=== PATIENT | female | born 1960 | race Caucasian/White ===

== ENCOUNTER → 2017-07-20 | Outpatient (CLI) | payer OTHER ==
--- NOTE | 2017-07-20 15:57 | XR ---
EXAMINATION TYPE: XR wrist complete RT, XR hand complete RT DATE OF EXAM: 07/20/2017 CLINICAL HISTORY: Pain after lifting injury. TECHNIQUE: Frontal, lateral and oblique images of the right hand and wrist are obtained. Fourth scap hoid view right wrist is acquired. COMPARISON: None FINDINGS: There is no acute fracture/dislocation evident in the right wrist. There is old ulnar styl oid avulsion fracture fracture redemonstrated. The joint spaces in the right wrist appear within norm al limits. The overlying soft tissue appears unremarkable. Images of right hand show no acute fracture or dislocation. There is mild degenerative change through out the phalanges most prominent in the DIP joints with some involvement fifth PIP joint. Overlying s oft tissue is unremarkable. IMPRESSION: There is no acute fracture or dislocation in the right hand or wrist.
== END | disposition home or self-care (01) ==
LOC: RADXRMAIN 14:59
PROVIDERS: ATTEND Emergency Medicine
DX: S63.501A Unspecified sprain of right wrist, initial encounter (principal)

== ENCOUNTER → 2017-07-30 | Outpatient (CLI) | payer OTHER ==
--- NOTE | 2017-07-30 14:39 | XR ---
EXAMINATION TYPE: XR wrist complete RT DATE OF EXAM: 07/30/2017 COMPARISON: 07/20/2017 HISTORY: Pain TECHNIQUE: Four views submitted. FINDINGS: The osseous structures are intact. The joint spaces are preserved and there is no acute fracture or dislocation. There is old ulnar styloid avulsion fracture fracture redemonstrated. IMPRESSION: 1. No definite acute fracture or dislocation if symptoms persist, follow-up study in 7 to 10 days wo uld be suggested
== END ==
LOC: RADXRMAIN 14:17
PROVIDERS: ATTEND Emergency Medicine
DX: S63.501D Unspecified sprain of right wrist, subsequent encounter (principal)

== ENCOUNTER → 2020-05-24 | Outpatient (CLI) | payer BC ==
--- NOTE | 2020-05-24 14:42 | XR ---
EXAMINATION TYPE: XR hand limited LT DATE OF EXAM: 05/24/2020 COMPARISON: NONE HISTORY: Pain TECHNIQUE: Two views are submitted. FINDINGS: There is a displaced fracture through the distal phalanx first digit. No definite articular extension identified. Soft tissue edema noted. Arthropathy of the first MCP joint. Remaining osseous structure s intact. IMPRESSION: 1. Mildly displaced fracture base distal phalanx first digit with adjacent soft tissue edema.
== END | disposition home or self-care (01) ==
LOC: RADXRMAIN 14:03
PROVIDERS: ATTEND Internal Medicine
DX: S62.522A Displaced fracture of distal phalanx of left thumb, initial encounter for closed fracture (principal)

== ENCOUNTER → 2021-06-28 | Outpatient (CLI) | payer BC ==
--- NOTE | 2021-06-29 09:58 | MM ---
Reason for exam: additional evaluation requested from abnormal screening. Last mammogram was performed less than 1 month ago. History: Patient is postmenopausal and is nulliparous. Family history of breast cancer in maternal grandmother. Took hormonal contraceptives for 2 years beginning at age 18. Physical Findings: A clinical breast exam by your physician is recommended on an annual basis and results should be correlated with mammographic findings. MG 3D Work Up W/Cad LT CC with magnification, LM with magnification, and LM view(s) were taken of the left breast. Prior study comparison: June 23, 2021, bilateral MG screening mammo w CAD. There are scattered fibroglandular densities. 6mm spiculated focal asymmetry upper outer quadrant with some associated punctate calcifications. Results were given to the patient verbally at the time of the exam. ASSESSMENT: Incomplete: need additional imaging evaluation, BI-RAD 0 RECOMMENDATION: Ultrasound of the left breast.
--- NOTE | 2021-06-29 10:01 | USB ---
Reason for exam: additional evaluation requested from abnormal screening. History: Patient is postmenopausal and is nulliparous. Family history of breast cancer in maternal grandmother. Took hormonal contraceptives for 2 years beginning at age 18. Physical Findings: A clinical breast exam by your physician is recommended on an annual basis and results should be correlated with mammographic findings. US Breast Workup Limited LT Left limited breast ultrasound including focal area of concern, retroareolar and axilla demonstrates a 0.5 x 0.5 x 0.7cm oval, echogenic lesion at 1 o'clock suggests a lipoma. Scanned 12-3 o'clock. Stereotactic biopsy of the upper outer quadrant density can be performed. Probably from a CC approach. Results were given to the patient verbally at the time of the exam. ASSESSMENT: Suspicious, BI-RAD 4 RECOMMENDATION: Stereotactic core biopsy of the left breast. Called Dr. Peterson's office with mammographic findings and has scheduled an appointment for the patient for 07/25/21 at 9:[address] Aceves. Biopsy scheduled for 07/18/21 at 7:00. PRELIMINARY REPORT CALLED AND FAXED TO DR. ACEVES ON 06/29/21.
== END | disposition home or self-care (01) ==
LOC: RADMAMWWP 13:29
PROVIDERS: ATTEND Internal Medicine
DX: R92.8 Other abnormal and inconclusive findings on diagnostic imaging of breast (principal)
CPT/HCPCS: 77061; 77065

== ENCOUNTER → 2021-07-18 | Day surgery (SDC) | payer BC ==
[2021-07-18 07:28] VITALS: RESP 16
[2021-07-18 08:40] VITALS: BP 155/89; PULSE 70; TEMP 98.1
--- NOTE | 2021-07-18 14:06 | MM ---
Stereotactic Mammotome core biopsy left breast. HISTORY: Left breast spiculation The lesion in question within the left breast were targeted by the undersigned. Procedure was performed by the undersigned. Informed consent was obtained and all of the patients questions were answered. The standard sterile technique was utilized and appropriate local anesthesia was obtained with 1% lidocaine. Mammotome probe was advanced and multiple core samples were obtained and sent to pathology for interpretation. Microclip marker was deployed at the site of biopsy. Post procedural mammogram demonstrates appropriate deployment of radiopaque clip marker. The patient tolerated the procedure well and left the department in stable condition. Pathology results are pending. IMPRESSION: Successful stereotactic core biopsy left breast with pathology results pending. 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 Recommendation Surgical consult of the left breast. PAYTON
== END ==
LOC: RADMAMWWP 06:53
PROVIDERS: ATTEND Student in an Organized Health Care Education/Training Program
DX: D05.12 Intraductal carcinoma in situ of left breast (principal)
CPT/HCPCS: 19081; 88305; 88342; 88341; A4648; J2001

== ENCOUNTER → 2021-08-01 | Outpatient (CLI) | payer BC ==
--- NOTE | 2021-08-01 09:12 | XR ---
EXAMINATION TYPE: XR chest 2V DATE OF EXAM: 08/01/2021 COMPARISON: NONE TECHNIQUE: PA and lateral views submitted. HISTORY: Breast cancer FINDINGS: The lungs are clear and there is no pneumothorax, pleural effusion, or focal pneumonia. IMPRESSION: 1. No acute process.
[2021-08-01 09:14] LABS: HCT 39.2 % (34.0-46.0); HGB 12.7 gm/dL (11.4-16.0); MCH 32.2 pg (25.0-35.0); MCHC 32.4 g/dL (31.0-37.0); MCV 99.3 fL (80.0-100.0); Mean Platelet Volume 8.1; Platelet Count 216 k/uL (150-450); RBC 3.95 m/uL (3.80-5.40); RDW 12.6 % (11.5-15.5); WBC 5.7 k/uL (3.8-10.6)
[2021-08-01 09:32] LABS: ALT 22 U/L (4-34); AST 26 U/L (14-36); African American GFR (CKD) >90 (>60 ml/min/1.73 sqM); Albumin 3.4 g/dL (3.5-5.0); Albumin/Globulin Ratio 1.4; Alkaline Phosphatase 53 U/L (38-126); Anion Gap 4 mmol/L; Blood Urea Nitrogen 10 mg/dL (7-17); Calcium 8.3 mg/dL (8.4-10.2); Carbon Dioxide 27 mmol/L (22-30); Chloride 105 mmol/L (98-107); Globulin 2.4 g/dL; Glucose 101 mg/dL (74-99); LDH 397 U/L (313-618); Non-African American GFR(CKD) 84 (>60 ml/min/1.73 sqM); Potassium 4.7 mmol/L (3.5-5.1); Sodium 136 mmol/L (137-145); Total Bilirubin 0.5 mg/dL (0.2-1.3); Total Protein 5.8 g/dL (6.3-8.2)
--- NOTE | 2021-08-01 11:34 | CT ---
EXAMINATION TYPE: CT abdomen pelvis w con DATE OF EXAM: 08/01/2021 COMPARISON: NONE HISTORY: 61-year-old female C50.912, Invasive Ductal Carcinoma of Left Breast. Sx tomorrow. TECHNIQUE: Contiguous axial scanning of the abdomen and pelvis following administration of 100 ml Iso prasanth 300 IV contrast. Delayed images through the kidneys and coronal/sagittal reconstructions perform ed. CT DLP: 1188.5 mGycm Automated exposure control for dose reduction was used. FINDINGS: Heart normal size without pericardial effusion. Strandy atelectasis or scarring in the visualized low er lungs. No pleural effusion. Liver normal size. No focal lesion is identified. Portal venous system is patent. No biliary ductal d ilatation. Gallbladder, adrenal glands, kidneys, spleen, and pancreas within normal limits. Mild atherosclerotic calcifications infrarenal abdominal aorta without aneurysm. No dilated small bowel, free fluid, or free air. No mesenteric or retroperitoneal lymphadenopathy. Appendix not discretely identified. Mild stool burden. Mild diverticulosis lower descending colon and proximal sigmoid colon. No pericolic inflammatory change. Uterus oblique towards the left and it appears to be retroverted with a subserosal, partially exophyt ic fibroid measuring up to 2.9 cm. Both ovaries are visualized. However, there appears to be a large cystic structure measuring up to 9.2 cm associated with the left ovary. A few peripheral punctate storm cifications are noted. No definite internal soft tissue nodularity is identified. Numerous pelvic fluid. Bladder is nondistended. Otherwise, no abnormal fluid collection the pelvis or pelvic lymphadenopathy. Bones: Mild degenerative spurring right hip. Bone island left ischial tuberosity. Mild degenerative d isc disease throughout the visualized spine. IMPRESSION: 1. NO SUSPICIOUS LYMPHADENOPATHY OR MASS TO SUGGEST METASTATIC DISEASE IN THE ABDOMEN OR PELVIS. 2. HOWEVER, THERE IS A CYSTIC LESION IN THE LEFT ADNEXA ASSOCIATED WITH THE LEFT OVARY. 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 FURTHER ULTRASOUND CHARACTERIZATION RECOMMENDED. HOSPITAL CLEANING SPECIALIST REFERRAL. 3. THE UTERUS APPEARS RETROVERTED WITH A 2.9 CM PARTIALLY EXOPHYTIC POSTERIOR FIBROID.
== END | disposition home or self-care (01) ==
LOC: RADCTMAIN 08:05
PROVIDERS: ATTEND Student in an Organized Health Care Education/Training Program
DX: C50.912 Malignant neoplasm of unspecified site of left female breast (principal)
CPT/HCPCS: 80053; 83615; 85027; 71046; 74177; 36415; Q9967

== ENCOUNTER 2023-08-24 12:05 | Emergency (ER) | payer OTHER, BC ==
[2023-08-24] MEDS: IBUPROFEN 600 MG TAB PO STA (12:54)
[2023-08-24] MEDS: HYDROcodone/APAP 5-325MG 1 EACH TAB PO STA (12:55)
--- NOTE | 2023-08-24 13:41 | XR ---
EXAMINATION TYPE: XR elbow complete LT DATE OF EXAM: 08/24/2023 12:53 PM CLINICAL INDICATION:Female, 63 years old with history of fall, pain; [facility] COMPARISON: None TECHNIQUE: XR elbow complete LT; elbow was examined in AP, lateral, and oblique projections. FINDINGS: No evidence of any acute osseous pathology, joint dislocation, or soft tissue swelling is n oted. No evidence of joint effusion is present. IMPRESSION: No evidence of acute fracture.
--- NOTE | 2023-08-24 13:42 | ED ---
Fall HPI - General Chief Complaint: Fall Stated Complaint: I[facility]-L sided abd/arm injury Time Seen by Provider: 08/24/23 12:15 Source: patient, RN notes reviewed Mode of arrival: ambulatory Limitations: no limitations - History of Present Illness Initial Comments: 63-year-old female presents emergency department with chief complaint of of a fall. Patient states she was, and caught her foot on the curb falling onto her left side she complains of left elbow pain, left rib pain, left hip pain. No head injury or loss conscious she does have an abrasion she is unsure when her last tetanus was. She denies any blood thinners. - Related Data Home Medications Medication Instructions Recorded Confirmed atenoloL [Tenormin] 25 mg PO DAILY 07/07/21 07/18/21 Allergies Allergy/AdvReac Type Severity Reaction Status Date / Time Penicillins Allergy Unknown Verified 08/24/23 12:11 Childhood Review of Systems ROS Statement: Those systems with pertinent positive or pertinent negative responses have been documented in the HPI. ROS Other: All systems not noted in ROS Statement are negative. Past Medical History Past Medical History: Cancer, Hypertension History of Any Multi-Drug Resistant Organisms: None Reported Past Surgical History: Appendectomy, Orthopedic Surgery Additional Past Surgical History / Comment(s): leg surgery-right Past Anesthesia/Blood Transfusion Reactions: No Reported Reaction Past Psychological History: No Psychological Hx Reported Smoking Status: Former smoker Past Alcohol Use History: None Reported Past Drug Use History: None Reported General Exam Limitations: no limitations General appearance: alert, in no apparent distress Head exam: Present: atraumatic, normocephalic, normal inspection ENT exam: Present: normal exam, normal oropharynx, mucous membranes moist Neck exam: Present: normal inspection, full ROM. Absent: tenderness, meningismus, lymphadenopathy Respiratory exam: Present: normal lung sounds bilaterally, chest wall tenderness. Absent: respiratory distress, wheezes, rales, rhonchi, stridor Cardiovascular Exam: Present: regular rate, normal rhythm, normal heart sounds. Absent: systolic murmur, diastolic murmur, rubs, gallop, clicks GI/Abdominal exam: Present: soft, normal bowel sounds. Absent: distended, tenderness, guarding, rebound, rigid Extremities exam: Present: other (Left elbow there is noted abrasion, hematoma, pain with range of motion no tenderness above or below the left elbow. Mild left hip tenderness full range of motion) Back exam: Present: full ROM. Absent: tenderness, paraspinal tenderness, vertebral tenderness Neurological exam: Present: alert, oriented X3, CN II-XII intact, reflexes normal. Absent: motor sensory deficit Skin exam: Present: warm, dry, intact, normal color. Absent: rash Course Vital Signs 08/24/23 08/24/23 12:10 14:18 Temperature 98.5 F 98.2 F Pulse Rate 66 62 Respiratory 20 18 Rate Blood Pressure 140/84 135/77 O2 Sat by Pulse 99 99 Oximetry Medical Decision Making - Medical Decision Making Was pt. sent in by a medical professional or institution (, PA, PAYROLL LEAD, urgent care, hospital, or usp...) When possible be specific @ -No Did you speak to anyone other than the patient for history (EMS, parent, family, police, friend...)? What history was obtained from this source @ -No Did you review nursing and triage notes (agree or disagree)? Why? @ -I reviewed and agree with nursing and triage notes Were old charts reviewed (outside hosp., previous admission, EMS record, old EKG, old radiological studies, urgent care reports/EKG's, usp records)? Report findings @ -No old charts were reviewed Differential Diagnosis (chest pain, altered mental status, abdominal pain women, abdominal pain men, vaginal bleeding, weakness, fever, dyspnea, syncope, headache, dizziness, GI bleed, back pain, seizure, CVA, palpatations, mental health, musculoskeletal)? @ -Fall, rib contusion, rib fracture, elbow contusion, hip contusion EKG interpreted by me (3pts min.). @ -None X-rays interpreted by me (1pt min.). @ -X-ray left rib series no acute fracture or dislocation no pneumothorax X-ray left hip and AP pelvis no acute fracture or dislocation X-ray left elbow no acute fracture CT interpreted by me (1pt min.). @ -None done U/S interpreted by me (1pt. min.). @ -None done What testing was considered but not performed or refused? (CT, X-rays, U/S, labs)? Why? @ -None What meds were considered but not given or refused? Why? @ -None Did you discuss the management of the patient with other professionals (professionals i.e. , PA, PA[employer]ROLL LEAD, lab, RT, psych nurse, director social service, painter structural steel, teacher, security officer, case advocate)? Give summary @ -No Was smoking cessation discussed for >3mins.? @ -No Was critical care preformed (if so, how long)? @ -No Were there social determinants of health that impacted care today? How? (Homelessness, low income, unemployed, alcoholism, drug addiction, transportation, low edu. Level, literacy, decrease access to med. care, long term, rehab)? @ -No Was there de-escalation of care discussed even if they declined (Discuss DNR or withdrawal of care, Hospice)? DNR status @ -No What co-morbidities impacted this encounter? (DM, HTN, Smoking, COPD, CAD, Cancer, CVA, ARF, Chemo, Hep., AIDS, mental health diagnosis, sleep apnea, morbid obesity)? @ -None Was patient admitted / discharged? Hospital course, mention meds given and route, prescriptions, significant lab abnormalities, going to OR and other pertinent info. @ -Discharge patient presented for fall x-rays were obtained and are negative for acute injuries patient will be discharged in stable condition return parameters discussed Undiagnosed new problem with uncertain prognosis? @ -No Drug Therapy requiring intensive monitoring for toxicity (Heparin, Nitro, Insulin, Cardizem)? @ -No Were any procedures done? @ -No Diagnosis/symptom? @ -Fall, rib contusion, elbow contusion, hip contusion Acute, or Chronic, or Acute on Chronic? @ -Acute Uncomplicated (without systemic symptoms) or Complicated (systemic symptoms)? @ -Uncomplicated Side effects of treatment? @ -No Exacerbation, Progression, or Severe Exacerbation? @ -No Poses a threat to life or bodily function? How? (Chest pain, [place], [place], pneumonia, PE, COPD, DKA, ARF, appy, cholecystitis, CVA, Diverticulitis, Homicidal, Suicidal, threat to staff... and all critical care pts) @ -No Disposition Clinical Impression: Fall, Left elbow contusion, Contusion of hip, left, Contusion of rib on left side Disposition: HOME SELF-CARE Condition: Stable Instructions (If sedation given, give patient instructions): Rib Contusion (ED) Additional Instructions: Please return to the Emergency Department if symptoms worsen or any other concerns. Is patient prescribed a controlled substance at d/c from ED?: No Referrals: Mike Castano DO [Primary Care Provider] - 1-2 days Time of Disposition: 14:00
--- NOTE | 2023-08-24 13:43 | XR ---
EXAMINATION TYPE: XR Hip LT and AP Pelvis DATE OF EXAM: 08/24/2023 12:55 PM CLINICAL INDICATION:Female, 63 years old with history of fall, pain; COMPARISON: None. TECHNIQUE: XR Hip LT and AP Pelvis; hip was examined in the frontal and lateral projections and a AP pelvis. FINDINGS: No evidence for acute process, joint dislocation or significant soft tissue swelling. Osteo phyte formation of the superior acetabulum of the hip. There is mild joint space narrowing. Scattered pelvic fluid was. IMPRESSION: 1. No evidence for acute process. 2. Mild hip osteoarthrosis.
[2023-08-24] MEDS: DIPH,PERTUS(ACELL)TETVAC-LF 0.5 ML VIAL IM ONE (13:50)
--- NOTE | 2023-08-24 13:51 | XR ---
EXAMINATION TYPE: XR ribs LT w pa chest xray DATE OF EXAM: 08/24/2023 12:56 PM CLINICAL INDICATION:Female, 63 years old with history of fall, pain; [facility] COMPARISON: None TECHNIQUE: XR ribs LT w pa chest xray; Frontal and oblique views of the ribs with frontal chest radio graph. FINDINGS: The ribs have a normal appearance. No evidence of fracture. Overall, the lungs are clear. The cardiac silhouette is normal in size. The remaining osseous structures are intact. IMPRESSION: No acute osseous pathology.
[2023-08-24] MEDS: ACET/COD 300 MG/30 MG STARTER PACK 6 TAB BTL PO STA (14:15)
[2023-08-24 14:22] VITALS: BP 135/77; PULSE 62; RESP 18; TEMP 98.2
== END 2023-08-24 14:22 | disposition home or self-care (01) ==
LOC: EC 12:05
DX: S50.02XA Contusion of left elbow, initial encounter (principal); S70.02XA Contusion of left hip, initial encounter; S20.212A Contusion of left front wall of thorax, initial encounter; Z87.891 Personal history of nicotine dependence; Z88.0 Allergy status to penicillin; Z23 Encounter for immunization; W18.30XA Fall on same level, unspecified, initial encounter
CPT/HCPCS: 73502; 90471; 90715; 99283

== ENCOUNTER → 2023-09-04 | Outpatient (CLI) | payer OTHER ==
--- NOTE | 2023-09-04 15:08 | XR ---
EXAMINATION TYPE: XR ribs LT DATE OF EXAM: 09/04/2023 2:23 PM CLINICAL INDICATION:Female, 63 years old with history of S20.219D CONTUSION OF UNSPECIFIED FRONT WALL OF TH; [facility] COMPARISON: None TECHNIQUE: XR ribs LT; Frontal and oblique views of the ribs with frontal chest radiograph. FINDINGS: The ribs have a normal appearance. No evidence of fracture. Overall, the lungs are clear. The cardiac silhouette is normal in size. The remaining osseous structures are intact. IMPRESSION: No acute osseous pathology.
--- NOTE | 2023-09-04 15:08 | XR ---
EXAMINATION TYPE: XR chest 1V DATE OF EXAM: 09/04/2023 2:23 PM CLINICAL INDICATION:Female, 63 years old with history of S20.219D CONTUSION OF UNSPECIFIED FRONT WALL OF TH; [facility] COMPARISON: Chest radiographs from 09/04/2023 TECHNIQUE: XR chest 1V Frontal view of the chest. FINDINGS: Lungs/Pleura: There is no evidence of pleural effusion, focal consolidation, or pneumothorax. Pulmonary vascularity: Unremarkable. Heart/mediastinum: Cardiomediastinal silhouette is unremarkable. Musculoskeletal: No acute osseous pathology. IMPRESSION: No acute cardiopulmonary disease/process.
== END | disposition home or self-care (01) ==
LOC: RADXRMAIN 14:04
PROVIDERS: ATTEND Emergency Medicine
DX: S20.219D Contusion of unspecified front wall of thorax, subsequent encounter (principal)
CPT/HCPCS: 71045